=== PATIENT | female | born 1940 | race Caucasian/White ===

== ENCOUNTER 2016-10-19 18:02 | Emergency (ER) | payer MEDICARE, OTHER ==
--- NOTE | 2016-10-19 19:06 | RAD ---
EXAM DESCRIPTION: Wrist,Left 3 Views CLINICAL HISTORY: 76 years Female, L WRIST PAIN COMPARISON: None. FINDINGS: 3 views of the left wrist show subtle linear lucency in the radial styloid concerning for the possibility of a nondisplaced fracture at this location. No additional distal radial or ulnar fracture is seen. There are degenerative changes at the first CMC joint, metacarpal fracture is identified. IMPRESSION: Questionable nondisplaced radial styloid fracture. If the patient has pain at this location, CT or MRI could be performed for confirmation. Electronically signed by: Laron Roe MD 10/19/2016 7:03 PM CDT Workstation: [id number]
--- NOTE | 2016-10-19 19:07 | ED.PDOC ---
History of Present Illness - General Chief Complaint: General Stated Complaint: left wrist pain Time Seen by Provider: 10/19/16 18:22 Source: patient, family Exam Limitations: no limitations - History of Present Illness Initial Comments: PT STATES ACUTE ONSET OF L WRIST PAIN STARTING TODAY. SHE TOOK TWO CELEBREX AND LATER IBUPROFEN. NEITHER HELPED. NO TRAUMA. Severity: severe Improving Factors: nothing Worsening Factors: movement Allergies/Adverse Reactions: Allergies Ciprofloxacin [From Cipro] Allergy (Verified 10/19/16 18:25) Povidone Iodine [From Betadine] Allergy (Verified 10/19/16 18:25) Rash Home Medications: Ambulatory Orders Simvastatin 40 mg PO HS 05/23/13 Azithromycin [Zithromax Z-Wil] 1 ea PO DAILY #1 pack 06/07/15 Calcium Carbonate 600 mg PO BID 06/07/15 Hydrochlorothiazide 25 mg PO DAILY 06/07/15 Promethazine W/Codeine Syr [Phenergan With Codeine Syrup] 5 ml PO QID PRN #120 ud 06/07/15 methylPREDNISolone TAB [Medrol Tab] 4 mg PO DAILY #1 tab 10/19/16 Review of Systems - Review of Systems Constitutional: States: no symptoms reported EENTM: States: no symptoms reported Respiratory: States: no symptoms reported Cardiology: States: no symptoms reported Gastrointestinal/Abdominal: States: no symptoms reported Genitourinary: States: no symptoms reported Musculoskeletal: States: see HPI, joint pain. Denies: neck pain Skin: States: change in color Neurological: States: no symptoms reported Endocrine: States: no symptoms reported Hematologic/Lymphatic: States: no symptoms reported All other Systems: Reviewed and Negative Past Medical History (General) - Patient Medical History Hx Seizures: No Hx Stroke: No Hx Asthma: No Hx of COPD: Yes Hx Cardiac Disorders: Yes - hypercholesterolemia Hx Congestive Heart Failure: No Hx Pacemaker: No Hx Hypertension: Yes Hx Diabetes: Yes Hx MRSA: No Surgical History: cholecystectomy - Vaccination History Hx Tetanus, Diphtheria Vaccination: No Hx Influenza Vaccination: Yes Hx Pneumococcal Vaccination: No - Social History Hx Tobacco Use: Yes - Quit 2004 Hx Alcohol Use: No Hx Substance Use: No Hx Physical Abuse: No Hx Emotional Abuse: No - Activities of Daily Living Hospice Agency (if applicable):: None - Female History Patient is a Female of Child Bearing Age (10 -59 yrs old): No Patient : No Family Medical History - Family History Father Family History: Unknown Living Status: Physical Exam - Physical Exam General Appearance: Alert, Well Groomed Eye Exam: bilateral normal Ears, Nose, Throat: hearing grossly normal, normal ENT inspection Neck: supple, normal inspection Respiratory: chest non-tender, lungs clear Cardiovascular/Chest: normal peripheral pulses, regular rate, rhythm Peripheral Pulses: radial,right: 2+, radial,left: 2+ Gastrointestinal/Abdominal: normal bowel sounds, non tender Extremity: inflammation, swelling, other - DISTAL ULNAR L WRIST AND THENAR EMINENCE TTP, PAINFUL AT REST, PAINFUL WITH WRIST FLEX OR EXTENSION, POS TUMOR, RUBOR, CALOR, DOLOR. RADIAL WRIST NL. Neurologic: alert, oriented x 3 Skin Exam: other - L ULNAR WRIST ERYTHEMATOUS, TENDER TO LIGHT TOUCH AND DEEP PRESSURE, HOT TO TOUCH (CALOR). Progress - Progress Progress: 10/19/16 19:37 XRAY ULNAR SIDE NEG (THE SIDE OF PAIN). RADIAL QUESTIONABLE STYLOID FRX, BUT EXAM NEG THERE. CLINICALLY C/W GOUT, THUS STEROIDS. PAIN OUT OF PROPORTION FOR STRAIN/SPRAIN SINCE NO TRAUMA. IS NOT CELLULITIS APPEARANCE AND NO S/SX OF INFECTIOUS PROCESS , THUS ABX NOT INDICATED. 10/19/16 19:39 Departure - Departure Clinical Impression: Gout attack, Wrist pain, left Disposition: Discharge to Home or Self Care Condition: Good Departure Forms: ED Discharge - Pt. Copy, Patient Portal Self Enrollment Instructions: DI for Gout Diet: resume usual diet Activity: increase activity as tolerated Prescriptions: methylPREDNISolone TAB [Medrol Tab] 4 mg PO DAILY #1 tab Home Medications: Ambulatory Orders Simvastatin 40 mg PO HS 05/23/13 Azithromycin [Zithromax Z-Wil] 1 ea PO DAILY #1 pack 06/07/15 Calcium Carbonate 600 mg PO BID 06/07/15 Hydrochlorothiazide 25 mg PO DAILY 06/07/15 Promethazine W/Codeine Syr [Phenergan With Codeine Syrup] 5 ml PO QID PRN #120 ud 06/07/15 methylPREDNISolone TAB [Medrol Tab] 4 mg PO DAILY #1 tab 10/19/16 Additional Instructions: Please follow-up with your doctor in about 2 weeks to check and see if you have an elevated uric acid level.
[2016-10-19] MEDS ORDERED: methylPREDNISolone ACETATE 80 MG/ML VIAL IM ONE (19:29)
[2016-10-19] MEDS ORDERED: HYDROcodone 5MG/APAP 325MG 1 EA TAB PO ONE (19:30)
[2016-10-19 19:40] VITALS: TEMP 98.6; O2SAT 98
[2016-10-19 19:46] VITALS: BP 89/48
== END 2016-10-19 19:46 | disposition home or self-care (01) ==
LOC: ER 18:02
DX: M10.9 Gout, unspecified (principal); J44.9 Chronic obstructive pulmonary disease, unspecified; E78.00 Pure hypercholesterolemia, unspecified; I10 Essential (primary) hypertension; E11.9 Type 2 diabetes mellitus without complications; Z87.891 Personal history of nicotine dependence; Z88.3 Allergy status to other anti-infective agents; Z88.8 Allergy status to other drugs, medicaments and biological substances; Z79.899 Other long term (current) drug therapy
CPT/HCPCS: 73110; J1030